=== PATIENT | female | born 1960 | race African-American/Black ===

== ENCOUNTER 2018-06-29 08:50 | Outpatient (CLI) | payer OTHER ==
--- NOTE | 2018-06-29 13:26 | MMO ---
BILATERAL SCREENING MAMMOGRAMS: Comparison: 2017, 2016 CAD FINDINGS: Both breasts shows fatty replacement. There are benign calcifications. No mass or distortion. No susp icious calcification or interval change. Recommend one year follow up. IMPRESSION: BIRADS 2 - benign findings. POS: [facility]
== END 2018-06-29 08:51 | disposition home or self-care (01) ==
LOC: SCSMAMMO 08:50
PROVIDERS: ATTEND Family Medicine
DX: Z12.31 Encounter for screening mammogram for malignant neoplasm of breast (principal)
CPT/HCPCS: 77067